=== PATIENT | female | born 1975 | race Caucasian/White ===

== ENCOUNTER → 2016-09-18 | Outpatient (CLI) | payer OTHER ==
[~2016-09-18] MED LIST: BUTA-234 PO; CATHETER FLUSH 10 ML SYR IV PRN; DILT120T11 PO; DILT240T PO; IBP600T1 PO; LEVO200T30 PO
--- NOTE | 2016-09-18 16:51 | Diagnostic Imaging Report ---
Hepatobiliary scan without ejection fraction. INDICATION: Postcholecystectomy, abdominal pain. This study was performed following administration of 5.4 mCi of Choletec. Sequential images over the right upper quadrant were obtained over one hour. A lateral view was also obtained at one hour. By history, the patient had a cholecystectomy performed yesterday. On this exam, there is uptake of the radiotracer by the liver. There is also excretion of the radiotracer s into the common bile duct and the small bowel. There is no abnormal accumulation of the radiotracer beyond the liver to suggest a bile leak. IMPRESSION: 1. There is no evidence for bile leak in this postcholecystectomy patient. The common bile duct does not appear to be obstructed either. 2. These results were called to Dr. Cardoza. Dictated by: Dictated on workstation # [id number]
== END ==
LOC: CARD 11:11
PROVIDERS: ATTEND Surgery
DX: R10.11 Right upper quadrant pain (principal)
CPT/HCPCS: 78226

== ENCOUNTER 2017-04-30 05:31 | Outpatient (CLI) | payer OTHER ==
[~2017-04-30] VITALS: Ht 165.1 cm; Wt 54.4 kg
[~2017-04-30 05:31] MED LIST changes: -CATHETER FLUSH 10 ML SYR IV PRN
[2017-04-30] MEDS ORDERED: RIVA20TA PO (14:24)
[2017-04-30] MEDS ORDERED: PANT40TA2 PO (14:24)
[2017-04-30] MEDS ORDERED: LEVO150T6 PO (14:24)
[2017-04-30] MEDS ORDERED: MULT-35 PO (14:24)
[2017-04-30] MEDS ORDERED: ATEN25TA PO (14:24)
== END 2017-04-30 14:25 ==
LOC: PREOP 05:31
PROVIDERS: ATTEND Otolaryngology Otolaryngology/Facial Plastic Surgery
DX: Z01.818 Encounter for other preprocedural examination (principal); R59.0 Localized enlarged lymph nodes

== ENCOUNTER 2017-05-02 09:36 | Day surgery (SDC) | payer OTHER ==
[~2017-05-02] VITALS: Ht 165.1 cm; Wt 54.4 kg
[~2017-05-02 09:36] MED LIST changes: +ATEN25TA PO; +LEVO150T6 PO; +MULT-35 PO; +PANT40TA2 PO; +RIVA20TA PO
--- OUTSIDE RECORDS SUMMARY | 2017-05-02 09:40 | XMS REPORT | Clinical Summary ---
Author Author [facility] Organization [facility] Address Unknown Phone Unavailable Care Team Providers Care Patient Resource Coordinator Name Role Phone PCP Unavailable Source Comments Some departments are not documenting in the electronic medical record. If you do not see the information that you expected, contact Release of Information in the Health Information Management department at [phone] for further assistance in locating additional records.[facility] Allergies Active Allergy Reactions Severity Noted Date Comments Meperidine HIVES Medium 10/08/2015 Sulfa (Sulfonamide STOMACH UPSET Low 10/08/2015 Has abdominal pain Antibiotics) Current Medications Prescription Sig. Disp. Refills Start End Date Status Date multivitamin tablet Take 1 Tab by mouth Active daily. cyanocobalamin(+) Take 100 mcg by mouth Active (VITAMIN B-12) 100 mcg daily. tablet BETA CAROTENE PO Take 1 Cap by mouth Active daily. fluconazole (DIFLUCAN) Administer 200 mL through 10/16/19 Active 400 mg/200 mL pgbk vein every 24 hours. 16 enoxaparin (LOVENOX) 100 Inject 0.9 mL into 84 mL 0 10/16/19 Active mg syrg area(s) as directed twice 16 daily. 0.9 % SODIUM CHLORIDE Administer 5-20 mL 500 mL 1 10/16/19 Active (SODIUM CHLORIDE PF 0.9%) through vein FLUSH TID. 16 0.9 % flush levothyroxine (SYNTHROID) Administer 4.375 mL 10/16/19 Active 100 mcg/5 mL solr through vein daily. 16 injection pantoprazole (PROTONIX) Administer 10 mL through 1 Each 10/16/19 Active 40 mg/10 mL injection vein daily. 16 metoclopramide HCl Administer 2 mL through 2 mL 10/16/19 Active (REGLAN) 5 mg/mL soln vein every 6 hours. 16 LORazepam injection Administer 0.25 mL 10/16/19 Active (ATIVAN) 2 mg/mL syrg through vein every 4 16 hours as needed. ondansetron (ZOFRAN) 4 Administer 2 mL through 10/16/19 Active mg/2 mL soln vein every 6 hours as 16 needed. 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 Social History Tobacco Use Types Packs/Day Years Used Date Former Smoker Cigarettes 1 25 Quit: 01/14/2015 Smokeless Tobacco: Never Used Alcohol Use Drinks/Week oz/Week Comments No Sex Assigned at Date Recorded Not on file Last Filed Vital Signs Vital Sign Reading Time Taken Blood Pressure 119/80 10/16/2015 4:05 PM CDT Pulse 108 10/16/2015 4:05 PM CDT Temperature 36.6 C (97.8 F) 10/16/2015 4:05 PM CDT Respiratory Rate - - Oxygen Saturation 97% 10/16/2015 4:05 PM CDT Inhaled Oxygen - - Concentration Weight 84.8 kg (187 lb) 10/16/2015 3:26 AM CDT Height 165.1 cm (5' 5") 10/14/2015 1:34 PM CDT Body Mass Index 31.12 10/16/2015 3:26 AM CDT Plan of Treatment Health Maintenance Due Date Last Done Comments PHYSICAL (COMPREHENSIVE) 1982 EXAM PERTUSSIS VACCINE 1986 TETANUS VACCINE 1992 CERVICAL CANCER SCREENING 2005 BREAST CANCER SCREENING 2015 INFLUENZA VACCINE 01/14/2017 Implants Implanted Type Area Cash Shortage Investigator Device Expiration Model / Identifier Date Serial / Lot Stnt Esph 23mm 24fr 90cm 150cm [employer] [id number] Implanted: Qty: 1 on 10/09/2015 by / Curtis Patel MD NONE / [id number] Results Not on filefrom Last 3 Months
--- OUTSIDE RECORDS SUMMARY | 2017-05-02 09:41 | XMS REPORT ---
Author Author JEY MCLEOD Organization [facility] Address [address] [place] [address] Care Team Providers Care Funeral Attendant Name Role Phone JEY MCLEOD Unavailable PROBLEMS Type Condition ICD9-CM Code [id number] Code Onset Dates Condition Status SNOMED Code Assessment Strep pharyngitis J02.0 May, Active 76573871 ALLERGIES Unknown Allergies SOCIAL HISTORY No smoking Hx information available PLAN OF CARE VITAL SIGNS MEDICATIONS Medication Instructions Dosage Frequency Start Date End Date Duration Status Amoxicillin 500 MG Orally every 12 hrs 1 capsule 12h May, May, 07 days Active RESULTS No Results PROCEDURES No Known procedures IMMUNIZATIONS No Known Immunizations
--- OUTSIDE RECORDS SUMMARY | 2017-05-02 09:41 | XMS REPORT ---
Author Author AUTUMN CASTANEDA [facility] Address [address] [place] [address] Care Team Providers Care Executive Director Of Nursing Name Role Phone AUTUMN CASTANEDA Unavailable PROBLEMS Type Condition ICD9-CM Code [id number] Code Onset Dates Condition Status SNOMED Code Problem Essential hypertension I10 Active 66636658 Problem History of pulmonary embolism Z86.711 Active 455800052 Problem Acquired hypothyroidism E03.9 Active 721048829 Problem History of kidney stones Z87.442 Active 973790050 ALLERGIES Unknown Allergies SOCIAL HISTORY No smoking Hx information available PLAN OF CARE VITAL SIGNS MEDICATIONS Medication Instructions Dosage Frequency Start Date End Date Duration Status Xarelto 20 mg Orally Once a day 1 tablet with food 24h May, 30 day(s) Active RESULTS No Results PROCEDURES No Known procedures IMMUNIZATIONS No Known Immunizations
--- OUTSIDE RECORDS SUMMARY | 2017-05-02 09:43 | XMS REPORT ---
Author Author AUTUMN CASTANEDA [facility] Address [address] [place] [address] Care Team Providers Care Mail Opener Name Role Phone AUTUMN CASTANEDA Unavailable PROBLEMS Type Condition ICD9-CM Code [id number] Code Onset Dates Condition Status SNOMED Code Problem Acquired hypothyroidism E03.9 Active 513736765 Problem Essential hypertension I10 Active 22141804 Problem History of pulmonary embolism Z86.711 Active 879633061 Problem History of kidney stones Z87.442 Active 055303473 ALLERGIES Unknown Allergies SOCIAL HISTORY No smoking Hx information available PLAN OF CARE VITAL SIGNS MEDICATIONS Medication Instructions Dosage Frequency Start Date End Date Duration Status Synthroid 150 MCG Orally Once a day 1 tablet on an empty stomach in the morning 24h Jun, 30 day(s) Active RESULTS No Results PROCEDURES No Known procedures IMMUNIZATIONS No Known Immunizations
--- OUTSIDE RECORDS SUMMARY | 2017-05-02 09:43 | XMS REPORT ---
Author Author AUTUMN CASTANEDA [facility] Address [address] [place] [address] Care Team Providers Care Boiler Engineer Name Role Phone AUTUMN CASTANEDA Unavailable PROBLEMS Type Condition ICD9-CM Code [id number] Code Onset Dates Condition Status SNOMED Code Problem Acquired hypothyroidism E03.9 Active 750330053 Problem Essential hypertension I10 Active 74846841 Problem History of pulmonary embolism Z86.711 Active 112815854 Problem History of kidney stones Z87.442 Active 240265842 ALLERGIES Unknown Allergies SOCIAL HISTORY No smoking [...]
--- OUTSIDE RECORDS SUMMARY | 2017-05-02 09:43 | XMS REPORT ---
Author Author AUTUMN CASTANEDA Organization [facility] Address [address] [place] [address] Care Team Providers Care Manager Continuous Improvement Name Role Phone AUTUMN CASTANEDA Unavailable PROBLEMS Type Condition ICD9-CM Code KBB11-FN Code Onset Dates Condition Status SNOMED Code Problem Acquired hypothyroidism E03.9 Active 166170595 Problem Essential hypertension I10 Active 97810393 Problem History of pulmonary embolism Z86.711 Active 353765356 Problem History of kidney stones Z87.442 Active 719078303 ALLERGIES Unknown Allergies SOCIAL HISTORY No smoking Hx information available PLAN OF CARE VITAL SIGNS MEDICATIONS Medication Instructions Dosage Frequency Start Date End Date Duration Status Xarelto 20 mg Orally Once a day 1 tablet with food 24h Active Atenolol 25 MG Orally Once a day 1 tablet 24h Jun, 30 day(s) Active Synthroid 175 MCG Orally Once a day 1 tablet on an empty stomach in the morning 24h Active RESULTS No Results PROCEDURES No Known procedures IMMUNIZATIONS No Known Immunizations
--- OUTSIDE RECORDS SUMMARY | 2017-05-02 09:43 | XMS REPORT ---
Author Author RADHA WALTON [facility] Address [address] [place] [address] Care Team Providers Care Academic Physician Name Role Phone RADHA WALTON Unavailable PROBLEMS Type Condition ICD9-CM Code [id number] Code Onset Dates Condition Status SNOMED Code Problem Acquired hypothyroidism E03.9 Active 377699223 Problem Essential hypertension I10 Active 97062868 Problem History of pulmonary embolism Z86.711 Active 910411782 Problem History of kidney stones Z87.442 Active 564015503 ALLERGIES Unknown Allergies SOCIAL HISTORY No smoking [...]
--- OUTSIDE RECORDS SUMMARY | 2017-05-02 09:43 | XMS REPORT ---
Author Author AUTUMN CASTANEDA Organization [facility] Address [address] [place] [address] Care Team Providers Care Devops Consultant Name Role Phone AUTUMN CASTANEDA Unavailable PROBLEMS Type Condition ICD9-CM Code [id number] Code Onset Dates Condition Status SNOMED Code Problem Acquired hypothyroidism E03.9 Active 778742075 Problem Essential hypertension I10 Active 37177965 Problem History of pulmonary embolism Z86.711 Active 291671357 Problem History of kidney stones Z87.442 Active 815049910 ALLERGIES Substance Reaction Event Type Date Status Sulfamethoxazole-Trimethoprim Unknown Drug Allergy Jun, Active Demerol Unknown Drug Allergy Jun, Active SOCIAL HISTORY No smoking Hx information available PLAN OF CARE Activity Details Follow Up 3 Months, prn Reason:htn, kidneys tones thyroid VITAL SIGNS Weight 147.2 lbs 2016-07-04 Temperature 98.4 degrees Fahrenheit 2016-07-04 Heart Rate 80 bpm 2016-07-04 Respiratory Rate 16 2016-07-04 Blood pressure systolic 110 mmHg 2016-07-04 Blood pressure diastolic 70 mmHg 2016-07-04 MEDICATIONS Medication Instructions Dosage Frequency Start Date End Date Duration Status Vitamin B-1 250 MG Active Womens Daily Formula - Active Hydrochlorothiazide 25 MG Orally Once a day 1 tablet 24h Active Atenolol 25 MG Orally Once a day 1 tablet 24h Jun, Active Biotin 300 MCG Orally Once a day 1 tablet 24h Active Potassimin 75 MG Orally Once a day 1 tablet 24h Active Xarelto 20 mg Orally Once a day 1 tablet with food 24h Active Synthroid 175 MCG Orally Once a day 1 tablet on an empty stomach in the morning 24h Active RESULTS Name Result Date Reference Range TSH W/ FREE T4 2016-07-04 TSH 0.027 0.450-4.500 T4,Free(Direct) 1.59 0.82-1.77 CBC 2016-07-04 WBC 4.4 3.4-10.8 RBC 4.49 3.77-5.28 Hemoglobin 12.7 11.1-15.9 Hematocrit 38.3 34.0-46.6 MCV 85 79-97 MCH 28.3 26.6-33.0 MCHC 33.2 31.5-35.7 RDW 15.5 12.3-15.4 Platelets 239 150-379 Neutrophils 57 Lymphs 33 Monocytes 5 Eos 4 Basos 1 Neutrophils (Absolute) 2.5 1.4-7.0 Lymphs (Absolute) 1.4 0.7-3.1 Monocytes(Absolute) 0.2 0.1-0.9 Eos (Absolute) 0.2 0.0-0.4 Baso (Absolute) 0.0 0.0-0.2 Immature Granulocytes 0 Immature Grans (Abs) 0.0 0.0-0.1 CMP 2016-07-04 Glucose, Serum 81 65-99 BUN 14 6-24 Creatinine, Serum 0.63 0.57-1.00 eGFR If NonAfricn Am 112 >59 eGFR If Africn Am 129 >59 BUN/Creatinine Ratio 22 9-23 Sodium, Serum 144 134-144 Potassium, Serum 3.7 3.5-5.2 Chloride, Serum 102 96-106 Carbon Dioxide, Total 25 18-29 Calcium, Serum 9.5 8.7-10.2 Protein, Total, Serum 7.1 6.0-8.5 Albumin, Serum 4.3 3.5-5.5 Globulin, Total 2.8 1.5-4.5 A/G Ratio 1.5 1.1-2.5 Bilirubin, Total 0.3 0.0-1.2 Alkaline Phosphatase, S 114 39-117 AST (SGOT) 15 0-40 ALT (SGPT) 12 0-32 PROCEDURES Procedure Date Ordered Related Diagnosis Body Site COMPLETE CBC W/AUTO DIFF WBC Jul 04, 2016 COMPREHEN METABOLIC PANEL Jul 04, 2016 ASSAY OF FREE THYROXINE Jul 04, 2016 ASSAY THYROID STIM HORMONE Jul 04, 2016 VENIPUNCT, ROUTINE* Jul 04, 2016 Office Visit, Est Pt., Level 4 Jul 04, 2016 IMMUNIZATIONS No Known Immunizations
--- OUTSIDE RECORDS SUMMARY | 2017-05-02 09:43 | XMS REPORT ---
Author Author AUTUMN CASTANEDA Organization [facility] Address [address] [place] [address] Care Team Providers Care Dynamo Repairer Name Role Phone TONYA AUTUMN Unavailable PROBLEMS Type Condition ICD9-CM Code [id number] Code Onset Dates Condition Status SNOMED Code Problem Acquired hypothyroidism E03.9 Active 305414087 Problem Essential hypertension I10 Active 46058684 Problem History of pulmonary embolism Z86.711 Active 271928459 Problem History of kidney stones Z87.442 Active 891301720 ALLERGIES Substance Reaction Event Type Date Status [...] 1 tablet 24h Jun, 30 day(s) Active Hydrochlorothiazide 25 MG Orally Once a day 1 tablet 24h Active Synthroid 175 MCG Orally Once a day 1 tablet on an empty stomach in the morning 24h Active Potassimin 75 MG Orally Once a day 1 tablet 24h Active RESULTS No Results PROCEDURES No Known procedures IMMUNIZATIONS No Known Immunizations
--- OUTSIDE RECORDS SUMMARY | 2017-05-02 09:43 | XMS REPORT ---
Author Author AUTUMN CASTANEDA Organization [facility] Address [address] [place] [address] Care Team Providers Care Application Designer Name Role Phone AUTUMN CASTANEDA Unavailable PROBLEMS Type Condition ICD9-CM Code [id number] Code Onset Dates Condition Status SNOMED Code Problem Acquired hypothyroidism E03.9 Active 950798112 Problem Essential hypertension I10 Active 84268847 Problem History of pulmonary embolism Z86.711 Active 974739847 Problem History of kidney stones Z87.442 Active 566303035 ALLERGIES No Information SOCIAL HISTORY Never Assessed PLAN OF CARE VITAL SIGNS MEDICATIONS Medication Instructions Dosage Frequency Start Date End Date Duration Status Xarelto 20 mg Orally Once a day 1 tablet with food 24h Active RESULTS No Results PROCEDURES No Known procedures IMMUNIZATIONS No Known Immunizations MEDICAL (GENERAL) HISTORY Type Description Date Medical History hypertension Medical History Hypothyroidism Medical History Blood Clots Surgical History gastric sleeve 2014 Surgical History 17 surgeries to repair hole in stomach related to sleeve surgery....patient is fine now Surgical History Dental Surgery 1979 Surgical History myringotomy with ventilating tube 1989, 2012 Surgical History sinus surgery 1998 Surgical History appendectomy 2000 Surgical History ovarian cyst resection-right 1999 Surgical History 2004 Surgical History hysterectomy, vaginal 2006 Surgical History oopherectomy--right 2005 Surgical History oopherectomy--left 2010 Surgical History Kidney stone removal 2008, 2016 Surgical History Right ankle 2015 Hospitalization History Surgeries and childbirth
--- OUTSIDE RECORDS SUMMARY | 2017-05-02 09:43 | XMS REPORT ---
Author Author KRISTINA DUNN [facility] Address [address] [place] [address] Phone Unavailable Care Team Providers Care Button Pusher Name Role Phone KRISTINA DUNN Unavailable Unavailable PROBLEMS Type Condition ICD9-CM Code IQP68-GE Code Onset Dates Condition Status SNOMED Code Problem Essential hypertension I10 Active 77637490 Problem History of pulmonary embolism Z86.711 Active 825422540 Problem Acquired hypothyroidism E03.9 Active 722742442 Problem History of kidney stones Z87.442 Active 632278100 ALLERGIES Substance Reaction Event Type Date Status sulfa Unknown Non Drug Allergy May, Active demoral Unknown Non Drug Allergy May, Active SOCIAL HISTORY No smoking Hx information available PLAN OF CARE Activity Details Follow Up PRN Reason:ASHLY WITH DR CISNEROS VITAL SIGNS MEDICATIONS Medication Instructions Dosage Frequency Start Date End Date Duration Status atenolol 1 tab Active Synthroid 100 MCG Orally Once a day 1 tablet on an empty stomach in the morning 24h Active Hydrochlorothiazide 25 MG Orally Once a day 1 tablet 24h Active Potassimin 75 MG Orally Once a day 1 tablet 24h Active Xarelto 20 MG Orally Once a day 1 tablet with food 24h Active RESULTS No Results PROCEDURES Procedure Date Ordered Related Diagnosis Body Site INTRAORL-PERIAPICAL 1 FILM [id number] Jun 12, 2016 BITEWINGS - FOUR FILMS Jun 12, 2016 PROPHYLAXIS - ADULT Jun 12, 2016 PANORAMIC FILM SEE ALSO CODE [id number] Jun 12, 2016 Billing Notes on claim Jun 12, 2016 [facility] Employee/Board adjustment Jun 12, 2016 IMMUNIZATIONS No Known Immunizations
--- OUTSIDE RECORDS SUMMARY | 2017-05-02 09:43 | XMS REPORT ---
Author CHERRY Mcelroy Organization [employer] Address Unknown Phone Unavailable Care Team Providers Care Electric Stop Installer Name Role Phone CHERRY GARCIA CP Unavailable Allergies No Known Allergies Problems Problem Type Condition Code Onset Dates Condition Status Assessment Observation of other suspected mental condition Z03.89 Active Medications No Known Medications Procedures Procedure Coding System Code Date Psych diagnostic evaluation, new patient CPT-4 30240 Apr 05, 2015 Results No Known Results Summary Purpose [employer] Submission
--- OUTSIDE RECORDS SUMMARY | 2017-05-02 09:47 | XMS REPORT ---
Author Author AUTUMN CASTANEDA Organization [facility] Address [address] [place] [address] Care Team Providers Care Bench Assembler Name Role Phone CASTANEDANISREENAUTUMN Unavailable PROBLEMS Type Condition ICD9-CM Code [id number] Code Onset Dates Condition Status SNOMED Code Problem Acquired hypothyroidism E03.9 Active 337077865 Problem Essential hypertension I10 Active 48695735 Problem History of pulmonary embolism Z86.711 Active 073402682 Problem History of kidney stones Z87.442 Active 266227826 ALLERGIES No Information SOCIAL HISTORY Never Assessed PLAN OF CARE VITAL SIGNS MEDICATIONS Medication Instructions Dosage Frequency Start Date End Date Duration Status Synthroid 125 mcg Orally Once a day 1 tablet on an empty stomach in the morning 24h Aug, 30 day(s) Active Atenolol 25 MG Orally Once a day 1 tablet 24h Jun, Active RESULTS No Results PROCEDURES No Known [...] tube 1989, 2012 Surgical History sinus surgery 1997 Surgical History appendectomy 2000 Surgical History ovarian cyst resection-right 1999 Surgical History 2004 Surgical History hysterectomy, vaginal 2006 Surgical History oopherectomy--right 2006 Surgical History oopherectomy--left 2010 Surgical History Kidney stone removal 2008, 2016 Surgical History Right ankle 2015 Hospitalization History Surgeries and childbirth
--- OUTSIDE RECORDS SUMMARY | 2017-05-02 09:47 | XMS REPORT ---
Author Author AUTUMN CASTANEDA [facility] Address [address] [place] [address] Care Team Providers Care Final Inspector Paper Name Role Phone AUTUMN CASTANEDA Unavailable PROBLEMS Type Condition ICD9-CM Code [id number] Code Onset Dates Condition Status SNOMED Code Problem Acquired hypothyroidism E03.9 Active 126904591 Problem Essential hypertension I10 Active 24484003 Problem History of pulmonary embolism Z86.711 Active 091005419 Problem History of kidney stones Z87.442 Active 752361624 ALLERGIES Unknown Allergies SOCIAL HISTORY No smoking Hx information available PLAN OF CARE VITAL SIGNS MEDICATIONS Medication Instructions Dosage Frequency Start Date End Date Duration Status Atenolol 25 MG Orally Once a day 1 tablet 24h Jun, Active RESULTS No Results PROCEDURES No Known procedures IMMUNIZATIONS No Known Immunizations
--- OUTSIDE RECORDS SUMMARY | 2017-05-02 09:47 | XMS REPORT ---
Author Author RADHA WALTON Organization [facility] Address [address] [place] [address] Care Team Providers Care Baker Paint Name Role Phone RADHA WALTON Unavailable PROBLEMS Type Condition ICD9-CM Code GBA50-NB Code Onset Dates Condition Status SNOMED Code Problem Acquired hypothyroidism E03.9 Active 586431456 Problem Essential hypertension I10 Active 35770205 Problem History of pulmonary embolism Z86.711 Active 259292671 Problem History of kidney stones Z87.442 Active 430985539 ALLERGIES No Information SOCIAL HISTORY Never Assessed PLAN OF CARE VITAL SIGNS MEDICATIONS Medication Instructions Dosage Frequency Start Date End Date Duration Status Doxycycline Hyclate 100 mg Orally every 12 hrs 1 capsule 12h October, October, 10 days Active RESULTS No Results PROCEDURES No [...]
[2017-05-02] MEDS ORDERED: ONDANSETRON 4 MG/2 ML (SDV) Z0FRAN IV ONE (10:15)
[2017-05-02] MEDS ORDERED: FAMOTIDINE 20MG/2ML IV (PEPCID) IV ONE (10:15)
[2017-05-02] MEDS ORDERED: SCOPOLAMINE 1.5 MG (TRANSDERM-SCOP) PATCH TOP ONE (10:15)
[2017-05-02] MEDS ORDERED: LACTATED RINGERS 1,000 ML IV PRN (10:15)
[2017-05-02 10:35] VITALS: BP 118/79
[2017-05-02] MEDS ORDERED: MIDAZOLAM 2 MG/2 ML (VERSED) VIAL ONE (10:54)
[2017-05-02] MEDS ORDERED: fentaNYL INJECTION 100 MCG/2 ML AMP ONE (10:59)
[2017-05-02] MEDS ORDERED: LIDOCAINE PF 2% 5 ML (XYLOCAINE) VIAL ONE (10:59)
[2017-05-02] MEDS ORDERED: proPOfol 200 MG/20 ML (DIPRIVAN) VIAL IV ONE (10:59)
[2017-05-02] MEDS ORDERED: LIDOCAINE/EPI 1%-1:200,000 (XYLOCAINE) 10 ML VIAL ONE (11:39)
--- NOTE | 2017-05-02 11:40 | Progress Note-Pre Operative ---
Pre-Operative Progress Note H&P Reviewed The H&P was reviewed, patient examined and no changes noted. Date Seen by Provider: May 02, 2017 Time Seen by Provider: 11:00 Date H&P Reviewed: May 02, 2017 Time H&P Reviewed: 11:00 Pre-Operative Diagnosis: Rgith Posterior Cervical Lymphadenopathy MILAN BANEGAS MD May 02, 2017 11:40 am
[2017-05-02] MEDS ORDERED: SEVOFLURANE (ULTANE) 15 ML INHAL SOLN ONE (12:15)
[2017-05-02] MEDS ORDERED: MUPIROCIN 2% OINT 22 GM (BACTROBAN) TUBE ONE (12:28)
[2017-05-02] MEDS ORDERED: DEXAMETHASONE 10 MG/ML (DECADRON) 1 ML VIAL ONE (12:30)
--- NOTE | 2017-05-02 12:43 | Progress Note-Post Operative ---
Post-Operative Progess Note Surgeon (s)/Molded Goods Embossing Press Operator (s) Surgeon MILAN BANEGAS MD Molded Goods Embossing Press Operator n/a Pre-Operative Diagnosis Rgith Posterior Cervical Lymphadenopathy Post-Operative Diagnosis same Post-Op Procedure Note Date of Procedure: May 02, 2017 Name of Procedure Performed: Excisional Biopsy of Right Cervical Lymph NOdes Description & Findings Description and Findings: n/a Anesthesia Type lma Estimated Blood Loss minimal Packing none. Specimen(s) collected/removed right cervical posterior lymph nodes for fresh to patho for permanents and flow cytometry if indicated MILAN BANEGAS MD May 02, 2017 12:43 pm
[2017-05-02] MEDS ORDERED: HYDROcodone/APAP 5 MG/325 MG (LORTAB) TAB PO PRN (12:45)
[2017-05-02] MEDS ORDERED: ACETAMINOPHEN 325 MG TABLET/CAPLET (TYLENOL) PO PRN (12:45)
[2017-05-02] MEDS ORDERED: ONDANSETRON 4 MG/2 ML (SDV) Z0FRAN ONE (13:05)
[2017-05-02] MEDS: ONDANSETRON 4 MG/2 ML (SDV) Z0FRAN IVP PRN ×2 (13:14→13:15)
[2017-05-02] MEDS ORDERED: diphenhydrAMINE 50 MG/ML INJ (BENADRYL) IM ONE (13:15)
[2017-05-02] MEDS ORDERED: PROMETHAZINE INJ 25 MG/ML (PHENERGAN) AMP IVP PRN (13:15)
[2017-05-02] MEDS ORDERED: diphenhydrAMINE 50 MG/ML INJ (BENADRYL) IVP ONE (13:20)
[2017-05-02 13:45] VITALS: BP 107/74
[2017-05-02 14:15] VITALS: BP 102/65
[2017-05-02 14:45] VITALS: BP 102/68
[2017-05-02] MEDS ORDERED: HYDR-3812 PO (15:04)
[2017-05-02 15:25] VITALS: BP 102/68
== END 2017-05-02 15:25 | disposition home or self-care (01) ==
LOC: SDC 09:36
PROVIDERS: ATTEND Otolaryngology Otolaryngology/Facial Plastic Surgery
DX: R59.0 Localized enlarged lymph nodes (principal); I10 Essential (primary) hypertension; F17.210 Nicotine dependence, cigarettes, uncomplicated; Z86.718 Personal history of other venous thrombosis and embolism; Z98.84 Bariatric surgery status; Z79.01 Long term (current) use of anticoagulants; Z79.899 Other long term (current) drug therapy
CPT/HCPCS: 87081; 88184; 88185; 88305; 88312; 88313

== ENCOUNTER 2021-02-18 03:23 | Day surgery (SDC) | payer OTHER ==
[~2021-02-18] VITALS: Ht 165 cm; Wt 52.7 kg
[2021-02-18] VITALS (12 sets, daily range): BP systolic 81–100; BP diastolic 50–61
[~2021-02-18 03:23] MED LIST changes: +ACHD5005 PO; -RIVA20TA PO; +RIVA20TA2 PO
[2021-02-18 03:38] LABS: BASOPHILS # (AUTO) 0.1 10^3/uL (0.0-0.1); BASOPHILS % (AUTO) 0 % (0-10); EOSINOPHILS # (AUTO) 0.3 10^3/uL (0.0-0.3); EOSINOPHILS % (AUTO) 2 % (0-10); HEMATOCRIT 30 % (35-52); HEMOGLOBIN 9.5 g/dL (11.5-16.0); LYMPHOCYTES # (AUTO) 2.2 10^3/uL (1.0-4.0); LYMPHOCYTES % (AUTO) 18 % (12-44); MEAN CORPUSCULAR HEMOGLOBIN 27 pg (25-34); MEAN CORPUSCULAR HGB CONC 31 g/dL (32-36); MEAN CORPUSCULAR VOLUME 85 fL (80-99); MEAN PLATELET VOLUME 9.5 fL (9.0-12.2); MONOCYTES # (AUTO) 0.5 10^3/uL (0.0-1.0); MONOCYTES % (AUTO) 4 % (0-12); NEUTROPHILS # (AUTO) 9.2 10^3/uL (1.8-7.8); NEUTROPHILS % (AUTO) 75 % (42-75); PLATELET COUNT 244 10^3/uL (130-400); WHITE BLOOD COUNT 12.2 10^3/uL (4.3-11.0)
[2021-02-18] MEDS ORDERED: ONDANSETRON 4 MG/2 ML (SDV) Z0FRAN IVP ONE (03:45)
[2021-02-18] MEDS ORDERED: ONDANSETRON 4 MG/2 ML (SDV) Z0FRAN ONE ×3 (03:45→04:34)
[2021-02-18] MEDS: LACTATED RINGERS 1,000 ML IV PRN ×2 (03:53→04:48)
[2021-02-18] MEDS ORDERED: MIDAZOLAM 2 MG/2 ML (VERSED) VIAL ONE (03:56)
[2021-02-18] MEDS ORDERED: LIDOCAINE PF 2% 5 ML (XYLOCAINE) VIAL ONE ×2 (03:56→04:34)
[2021-02-18] MEDS ORDERED: fentaNYL INJ 100 MCG/2 ML AMP ONE ×2 (03:57→04:28)
--- NOTE | 2021-02-18 04:05 | History & Physical-Surgical ---
HPO-Surgical History of Present Illness Chief Complaint: PT PRESENTS TO THE ED C/O VAGINAL BLEEDING THAT ONSET AROUND 2129 AFTER HAVING VAGINAL SEX WITH A KNOWN PARTNER THIS EVENING. PT ARRIVES TO THE ED FROM THE [place] [facility] VIA EMS. PT CURRENTLY RECIEVING BLOOD D/T VOLUME LOSS. PT IS ON BLOOD THINNERS AND HAS BEEN GIVEN REVERSAL AGENT Diagnosis/Surgical Indication: Acute Vagina bleeding Procedure: Vaginal exam under anesthesia; possible vaginal laceration repair; possible laparotomy with repair of vaginal cuff, other indicated procedures. Date of Surgery: Feb 18, 2021 Weight (Pounds): 120 Weight (Ounces): 0.0 Height (Feet): 5 Height (Inches): 5.00 Allergies and Home Medications Allergies Coded Allergies: meperidine (Verified Allergy, Mild, RASH, 04/30/17) Sulfa (Sulfonamide Antibiotics) (Unverified Adverse Reaction, Unknown, ABD PAIN, 04/30/17) Patient Home Medication List Home Medication List Reviewed: Yes Atenolol (Atenolol) 25 Mg Tablet, 25 MG PO DAILY, (Reported) Entered as Reported by: JAN PRETTY on 02/18/21405 Last Action: New Order Diltiazem HCl (Cardizem LA) 240 Mg Tab.er.24h, 240 MG PO DAILY, (Reported) Entered as Reported by: JAN PRETTY on 02/18/21405 Last Action: New Order Furosemide (Lasix) 20 Mg Tablet, 20 MG PO, (Reported) Entered as Reported by: JAN PRETTY on 02/18/21405 Last Action: New Order Levothyroxine Sodium (Levothyroxine Sodium) 150 Mcg Tablet, 150 MCG PO DAILY, (Reported) Entered as Reported by: YIMI HEIN on 04/30/17 1424 Lisinopril (Lisinopril) 2.5 Mg Tablet, 2.5 MG PO DAILY, (Reported) Entered as Reported by: JAN PRETTY on 02/18/21405 Last Action: New Order Multivitamin (Daily Multiple Vitamin) 1 Each Tablet, 1 EACH PO DAILY, (Reported) Entered as Reported by: YIMI HEIN on 04/30/17 1424 Potassium Chloride (K-Tab ER) 20 Meq Tablet.er, 400 MEQ PO DAILY, (Reported) Entered as Reported by: JAN PRETTY on 02/18/21 0436 Last Action: New Order Rivaroxaban (Xarelto Tablet) 20 Mg Tablet, 20 MG PO DAILY, (Reported) Entered as Reported by: YIMI HEIN on 04/30/171423 Discontinued Medications Atenolol (Atenolol) 25 Mg Tablet, 25 MG PO DAILY, (Reported) Entered as Reported by: YIMI HEIN on 04/30/171423 Last Action: Discontinued Hydrocodone Bit/Acetaminophen (Lortab 5 Mg Tablet) 1 Each Tablet, 1.2 EACH PO Q4H PRN for PAIN Prescribed by: BUZZ JEFFERS on 05/02/17 1504 Last Action: Discontinued Pantoprazole Sodium (Protonix) 40 Mg Tablet.dr, 40 MG PO DAILY, (Reported) Entered as Reported by: YIMI HEIN on 04/30/171423 Last Action: Discontinued Past Fvgizbb-Gzbbxf-Vqwftu Hx Patient Social History Number of Children: 3 Number of living children: 3 Recent Hopitalizations: No Have you traveled recently?: No Alcohol Use?: No Immunizations Up To Date Date of Influenza Vaccine: Mar 31, 2017 Seasonal Allergies Seasonal Allergies: No Surgeries Yes (lymph node biopsy; VSG with complications (ruptured esophagus)) Appendectomy, Section, Gallbladder, Hysterectomy, Oophorectomy Respiratory No Cardiovascular Deep Vein Thrombosis (upper body associated with vascular access), Hypertension Neurological Headaches /Migraines, TIA Reproductive System Hx Reproductive Disorders: No Sexually Transmitted Disease: No HIV/AIDS: No 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: Hysterectomy (LAV USO due to menorrhagia) Genitourinary Kidney Stones Gastrointestinal Gastroesophageal Reflux, Chronic Constipation HEENT History of HEENT Disorders: Yes (enlarged lymph node; hypothryroid with history of Graves) Loss of Vision: Denies Hearing Impairment: Denies Cancer No Blood Transfusions Hx of Blood Transfusion received 1 unit today Adverse Reaction to a Blood Tr: No Reviewed Nursing Assessment Reviewed/Agree w Nursing PMH: Yes Family Medical History Significant Family History: No Pertinent Family Hx Exam Vital Signs Vital Signs 02/18/21 03:27 Temp 36.3 Pulse 79 Resp 22 B/P (MAP) 98/68 (78) Pulse Ox 98 O2 Delivery Room Air Capillary Refill : Less Than 3 Seconds Labs Laboratory Tests Test 02/18/21 03:30 Range/Units White Blood Count 12.2 H 4.3-11.0 10^3/uL Red Blood Count 3.58 L 3.80-5.11 10^6/uL Hemoglobin 9.5 L 11.5-16.0 g/dL Hematocrit 30 L 35-52 % Mean Corpuscular Volume 85 80-99 fL Mean Corpuscular Hemoglobin 27 25-34 pg Mean Corpuscular Hemoglobin Concent 31 L 32-36 g/dL Red Cell Distribution Width 14.0 10.0-14.5 % Platelet Count 244 130-400 10^3/uL Mean Platelet Volume 9.5 9.0-12.2 fL Immature Granulocyte % (Auto) 0 % Neutrophils (%) (Auto) 75 42-75 % Lymphocytes (%) (Auto) 18 12-44 % Monocytes (%) (Auto) 4 0-12 % Eosinophils (%) (Auto) 2 0-10 % Basophils (%) (Auto) 0 0-10 % Neutrophils # (Auto) 9.2 H 1.8-7.8 10^3/uL Lymphocytes # (Auto) 2.2 1.0-4.0 10^3/uL Monocytes # (Auto) 0.5 0.0-1.0 10^3/uL Eosinophils # (Auto) 0.3 0.0-0.3 10^3/uL Basophils # (Auto) 0.1 0.0-0.1 10^3/uL Immature Granulocyte # (Auto) 0.0 0.0-0.1 10^3/uL General Appearance: Alert HEENT: Atraumatic Respiratory: Clear to Auscultation Abdominal: Other (pelvic exam deferred to anesthesia) Assessment/Plan Assessment and Plan 1. acute vaginal bleeding 2. anticoagulated 3. vaginal trauma 4. multiple abdominal surgeries 5. acute blood loss anemia 6. history of DVT Plan - exam under anesthesia, possible repair of vaginal laceration, possible laparotomy with vaginal cuff repair, other indicated procedures Risks include further bleeding, infectin, injury to bowel, bladder and ureter. Will use prophylatic SCDs and possible antiboitics Admission Diagnosis Admission Status: JAN Edward DO Feb 18, 2021 04:05
[2021-02-18] MEDS ORDERED: LISI2.5T13 PO (04:06)
[2021-02-18] MEDS ORDERED: FURO-125 PO (04:06)
[2021-02-18] MEDS ORDERED: DILT240T PO (04:06)
[2021-02-18] MEDS ORDERED: ATEN25TA PO (04:06)
[2021-02-18] MEDS ORDERED: morphine INJ 10 MG/ML 1ML (SYR OR VIAL) ONE (04:27)
[2021-02-18] MEDS ORDERED: HYDROmorphone 2 MG/ML VIAL (DILAUDID) ONE (04:28)
[2021-02-18] MEDS ORDERED: PROMETHAZINE INJ 25 MG/ML (PHENERGAN) AMP ONE (04:28)
[2021-02-18] MEDS ORDERED: proPOfol 200 MG/20 ML (DIPRIVAN) VIAL IV ONE (04:34)
[2021-02-18] MEDS ORDERED: POTA-53 PO (04:36)
[2021-02-18] MEDS ORDERED: SEVOFLURANE (ULTANE) 15 ML INHAL SOLN ONE (04:36)
[2021-02-18] MEDS ORDERED: TRANEXAMIC ACID 100 MG/ML 10 ML INJECTION ONE (04:38)
[2021-02-18] MEDS ORDERED: SCOPOLAMINE 1.5 MG (TRANSDERM-SCOP) PATCH TD ONE (04:45)
[2021-02-18] MEDS ORDERED: NALOXONE 0.4 MG/ML 1 ML (NARCAN) VIAL IV PRN (04:45)
[2021-02-18] MEDS ORDERED: PROMETHAZINE INJ 25 MG/ML (PHENERGAN) AMP IVP PRN (04:45)
--- NOTE | 2021-02-18 04:50 | Operative Report ---
Operative Report Date of Procedure/Surgery Feb 18, 2021 Surgeon (s) JAN PRETTY DO Customer Support Manager (s): NA Post-Operative Diagnosis vaginal wall laceration acute vaginal bleeding Procedure Performed vaginal exam under anesthesia repair of vaginal wall laceration Description of Procedure Anesthesia Type: MAC Estimated blood loss (mL): minimal Specimen(s) collected/removed none Packing: vaginal with TXA Description of the Procedure with informed consent the patient was taken to the operating room where general anesthesia was found to be adequate. The patient had clots removed from the vagina. She was prepped and draped in the usual sterile fashion in the dorsolithotomy position. The bladder was drained of clear yellow urine. A speculum was then placed in the vaginal and I was able to visualize clots at the top of the vagina but could not see the laceration until the vagina was irrigated. There was not alot of active bleeding but there were adherent clots when were flushed from the laceration. The laceration was at the left apex and was approximately 8=-10 cm in length but was slightly angled (L shaped). I then was able to palpate the base of the laceration which was intact. I could not find an obvious area of bleeding. But there was generalized oozing. I sprayed surgiflo at the base of the laceration and then closed the laceration. Once this was adequately closed, i irrigated again and there was minimal bleeding. I then placed a vaginal pack soaked in TXA in the vaginal vault. the patient was now awakened and taken to recovery in stable condition. Findings of the Procedure approximately 8 cm laceration at the vaginal cuff with adherent clots. Allergies and Home Medications Allergies Coded Allergies: meperidine (Verified Allergy, Mild, RASH, 04/30/17) Sulfa (Sulfonamide Antibiotics) (Unverified Adverse Reaction, Unknown, ABD PAIN, 04/30/17) Patient Home Medication List Home Medication List Reviewed: Yes Atenolol (Atenolol) 25 Mg Tablet, 25 MG PO DAILY, (Reported) Entered as Reported by: JAN PRETTY on 02/18/21405 Last Action: New Order Diltiazem HCl (Cardizem LA) 240 Mg Tab.er.24h, 240 MG PO DAILY, (Reported) Entered as Reported by: JAN PRETTY on 9/5/21 0406 Last Action: New Order Estradiol (Estrace Cream) 42.5 Gm Cream.appl, 1 GM VG DAILY Prescribed by: JAN PRETTY on 02/18/21 1046 Furosemide (Lasix) 20 Mg Tablet, 20 MG PO, (Reported) Entered as Reported by: JAN PRETTY on 02/18/21 0406 Last Action: New Order Levothyroxine Sodium (Levothyroxine Sodium) 150 Mcg Tablet, 150 MCG PO DAILY, (Reported) Entered as Reported by: YIMI HEIN on 04/30/17 142 Lisinopril (Lisinopril) 2.5 Mg Tablet, 2.5 MG PO DAILY, (Reported) Entered as Reported by: JAN PRETTY on 02/18/21405 Last Action: New Order Multivitamin (Daily Multiple Vitamin) 1 Each Tablet, 1 EACH PO DAILY, (Reported) Entered as Reported by: YIMI HEIN on 04/30/17 142 Potassium Chloride (K-Tab ER) 20 Meq Tablet.er, 400 MEQ PO DAILY, (Reported) Entered as Reported by: JAN PRETTY on 02/18/21 0436 Last Action: New Order Rivaroxaban (Xarelto Tablet) 20 Mg Tablet, 20 MG PO DAILY, (Reported) Entered as Reported by: YIMI HEIN on 04/30/17 142 JAN PRETTY DO Feb 18, 2021 04:50
[2021-02-18] MEDS ORDERED: morphine INJ 10 MG/ML 1ML (SYR OR VIAL) IVP ONE (05:00)
[2021-02-18] MEDS ORDERED: PROMETHAZINE INJ 25 MG/ML (PHENERGAN) AMP IVP ONE (05:00)
[2021-02-18] MEDS ORDERED: fentaNYL INJ 100 MCG/2 ML AMP IVP ONE (05:00)
[2021-02-18] MEDS ORDERED: ONDANSETRON 4 MG/2 ML (SDV) Z0FRAN IVP PRN (05:00)
[2021-02-18] MEDS ORDERED: KETOROLAC 30 MG/ML VIAL ONE (05:03)
[2021-02-18] MEDS ORDERED: ACETAMINOPHEN 500 MG TAB (TYLENOL) PO SCH (06:00)
[2021-02-18] MEDS ORDERED: KCL 20 MEQ TAB (K-DUR) PO SCH (07:00)
[2021-02-18] MEDS ORDERED: lisINopril 5 MG (PRINIVIL) TABLET PO SCH (09:00)
[2021-02-18] MEDS ORDERED: FUROSEMIDE 40 MG (LASIX) TAB PO SCH (09:00)
[2021-02-18] MEDS ORDERED: ATENOLOL 25 MG (TENORMIN) TAB PO SCH (09:00)
[2021-02-18] MEDS ORDERED: ESTR42.52 VG (10:46)
--- NOTE | 2021-02-18 10:53 | Discharge Inst-Women's Service ---
Discharge Inst-Women's Serv Depart Medication/Instructions New, Converted or Re-Newed RX: Transmitted to Pharmacy Instructions start Xarelto on Friday Final Diagnosis traumatic vaginal laceration atrophic vaginitis anticoagulated Problems Reviewed?: Yes Consults/Follow Up Additional Follow Up: Yes ([address] Pretty (Call [phone] to make appointment) Activity Activity: Activity as Tolerated Driving Instructions: No Driving for 24 Hours NO SMOKING: NO SMOKING Nothing Inside Vagina: No Douching, No [place], No Tampons Diet Discharge Diet: No Restrictions Symptoms to Report to : Bleeding Excessive (> 1 pad per hour x 2 hours), Pain Increased, Fever Over 101 Degrees F, Vaginal Bleeding Increase, Cramps in Feet or Legs, Lightheadedness, Vaginal Discharge Foul expect light vaginal bleeding/spotting for up to 2 weeks For Any Problems or Questions: Contact Your Physician JAN PRETTY DO Feb 18, 2021 10:52
--- NOTE | 2021-02-18 11:07 | Anesthesia-General Post-Op ---
General Patient Condition Mental Status/LOC: Same as Preop Cardiovascular: Satisfactory Nausea/Vomiting: Absent Respiratory: Satisfactory Pain: Controlled Complications: Absent Post Op Complications Complications None Follow Up Care/Instructions Patient Instructions None needed. Anesthesia/Patient Condition Patient Condition Patient is doing well, no complaints, stable vital signs, no apparent adverse anesthesia problems. No complications reported per nursing. CASE VENTURA CRNA Feb 18, 2021 11:07
[2021-02-18 11:08] LABS: HEMOGLOBIN 9.1 g/dL (11.5-16.0)
[2021-02-18] MEDS ORDERED: ESTRADIOL VAGINAL CREAM 42.5 GM (ESTRACE) VG SCH (12:00)
[2021-02-19] MEDS ORDERED: IBUPROFEN 600 MG (MOTRIN) TAB PO SCH (06:00)
== END 2021-02-18 15:10 | disposition home or self-care (01) ==
LOC: EDUNIT# 03:23 → ER 03:24 → SDC 03:42 → WS 05:55 → SDC 15:10
PROVIDERS: ATTEND Obstetrics & Gynecology
DX: S31.41XA Laceration without foreign body of vagina and vulva, initial encounter (principal); X58.XXXA Exposure to other specified factors, initial encounter; N95.2 Postmenopausal atrophic vaginitis; E03.9 Hypothyroidism, unspecified; I10 Essential (primary) hypertension; I47.1 Supraventricular tachycardia; F17.210 Nicotine dependence, cigarettes, uncomplicated; Z98.84 Bariatric surgery status; Z79.899 Other long term (current) drug therapy; Z79.890 Hormone replacement therapy; Z79.01 Long term (current) use of anticoagulants; Z88.2 Allergy status to sulfonamides; Z88.8 Allergy status to other drugs, medicaments and biological substances
CPT/HCPCS: 36415; 36430; 85014; 85018; 85025; 86850; 86900; 86901; 86920; 94664; 96374; 99291